=== PATIENT | male | born 1945 | race Caucasian/White ===

== ENCOUNTER 2020-07-21 06:15 | Outpatient (RCR) | payer MEDICARE, SELFPAY ==
[2020-07-21] MEDS: COVID-19 VACC, MRNA(PFIZER)/PF 30 MCG/0.3 ML SYRINGE IM (10:18)
[2020-08-11] MEDS: COVID-19 VACC, MRNA(PFIZER)/PF 30 MCG/0.3 ML SYRINGE IM (10:11)
== END 2020-10-20 23:59 ==
LOC: IMMUN 06:15
PROVIDERS: Referring Provider Family Medicine; Visit Provider Family Medicine
DX: Z23 Encounter for immunization (principal)
CPT/HCPCS: 0001A; 0002A; 91300